=== PATIENT | female | born 1945 | race Caucasian/White ===

== ENCOUNTER 2018-05-26 17:39 | Inpatient (IN) ==
[2018-05-26] MEDS ORDERED: LOPRESSOR ONE ×2 (18:01→18:12)
[2018-05-26] MEDS ORDERED: NS 1,000 ML ONE (18:01)
[2018-05-26] MEDS ORDERED: ADENOCARD ONE (18:01)
[2018-05-26] MEDS ORDERED: ATIVAN ONE (18:01)
[2018-05-26] MEDS ORDERED: CARDIZEM ONE (18:01)
[2018-05-26] MEDS ORDERED: ADENOCARD IV ONE ×2 (18:19→18:20)
[2018-05-26] MEDS ORDERED: LOPRESSOR IV ONE (18:19)
[2018-05-26] MEDS ORDERED: NS 1,000 ML IV ONE (18:19)
[2018-05-26 18:33] LABS: BASO# 0.04 X1000 (0.0-0.2); BASO% 0.5 % (0.0-0.8); EOS% 1.2 % (0.0-10.0); HEMATOCRIT 42.7 % (37.0-47.0); HEMOGLOBIN 13.5 g/dL (12.0-16.0); LYMPH# 1.96 X1000 (1.2-3.4); LYMPH% 22.8 % (20.5-51.1); MCH 30.1 PG (27-31); MCHC 31.6 g/dL (33-37); MCV 95.3 FL (81-99); MONO# 0.95 X1000 (0.11-0.59); MONO% 11.1 % (1.7-9.3); MPV 11.3 FL (7.4-10.4); NEUT# 5.53 X1000 (1.4-6.5); NEUT% 64.4 % (42.2-75.2); PLT 239 X1000 (130-400); RBC 4.48 XMIL (4.2-5.4); RDW 13.1 % (11.5-14.5); WBC 8.58 X1000 (4.8-10.8)
--- NOTE | 2018-05-26 18:38 | Diag Imaging Result Doc PS360 ---
EXAM: CHEST-1 VIEW 05/26/2018 HISTORY: palpitations TECHNIQUE: AP portable at 1826 COMMENT: The heart size is the upper limits of normal. The pulmonary vascularity is increased. The lungs appear to be clear. There are no previous studies available for comparison. IMPRESSION: Borderline cardiomegaly. Electronically signed by Emmanuel Duarte 05/26/2018 6:35 PM
[2018-05-26 18:43] LABS: AGAP 15; BUN 16 mg/dL (8-22); CALCIUM 8.6 mg/dL (8.8-10.2); CHLORIDE 101 mmol/L (98-107); COSMO 279; CREATININE 0.7 mg/dL (0.5-0.9); ESTIMATED GFR > 60; GLUCOSE 141 mg/dL (70-104); POTASSIUM 3.9 mmol/L (3.5-5.1); SODIUM 138 mmol/L (136-145); TCO2 22 mmol/L (25-35)
--- NOTE | 2018-05-26 19:16 | PROVIDER DOCUMENTATION ---
HPI-Chest Pain - General Chief Complaint: Palpitations Stated Complaint: HEART PROBLEM Time Seen by Provider: 05/26/18 19:15 Source: patient Unable to obtain history due to:: urgency (limited due to urgency) - History of Present Illness-CP Nature of Presenting Problem: Presents to the with complaints of feeling like her heart was fluttering. She states this started acutely at home. She endorses some SOB associated with it and some left sided chest pain. She states that back in the 70s or 80s she had " a blockage" that did not require any stents. She no longer has a steam tender and has not seen one in years. She states this has never happened to her before and she has no history of arrythmia. Location: reports: other (left sided chest pain) Chest Pain Radiation: reports: no radiation Quality of Pain: reports: burning Severity in ED: moderate Onset/Duration: just prior to arrival Timing: still present Context/Activities at Onset: reports: none Modifying Factors: improves with: nothing Associated Symptoms: reports: shortness of breath Nitro Today/Relief: no nitro taken today Aspirin Treatment Today: no aspirin today Prior Chest Pain/Cardiac Workup: reports: other (see HPI) Similar Symptoms Previously?: No Review of Systems - Adult - REVIEW OF SYSTEMS - ADULT Constitutional: reports: no symptoms reported Eyes: reports: no symptoms reported Ears, Nose, Mouth & Throat: reports: no symptoms reported Cardiovascular: reports: chest pain, palpitations Respiratory: reports: shortness of breath Gastrointestinal: reports: no symptoms reported Genitourinary: reports: no symptoms reported Musculoskeletal: reports: no symptoms reported Integumentary: reports: no symptoms reported Neurological: reports: no symptoms reported Psychiatric: reports: no symptoms reported Endocrine: reports: no symptoms reported Hematologic/Lymphatic: reports: no symptoms reported Allergic/Immunologic: reports: no symptoms reported All Other Systems: Reviewed and Negative Past History - Adult - PAST MEDICAL HISTORY-ADULT Review of Records: reports: Old Records Reviewed Physical Exam-General - CONSTITUTIONAL General Appearance: alert, mild distress - EYES Eyes: PERRL/EOMI, pink conjunctivae - HEAD, EARS, NOSE, MOUTH & THROAT HENMT: normocephalic/atraumatic, moist mucous membranes - NECK Neck: full range of motion, supple - RESPIRATORY Respiratory: chest non-tender, lungs clear, normal breath sounds - CARDIOVASCULAR Cardiovascular: no edema, tachycardia - GASTROINTESTINAL (ABDOMEN) Abdominal Exam: normal bowel sounds, non tender, soft - MUSCULOSKELETAL Back Exam: normal inspection - SKIN Integumentary: normal color, warm/dry - NEUROLOGIC Neurologic: grossly normal, no motor/sensory deficits - PSYCHIATRIC Psych/Mental Status: oriented x 3 - HEART Score HEART Score: History: Moderately Suspicious HEART Score: ECG: Non-Specific Repolarization Disturbance/LBBB/PM HEART Score: Age: > or = 65 Years HEART Score: Risk Factors for Atherosclerotic Disease: 1 or 2 Risk Factors HEART Score: Troponin: < or = Normal Limit Total HEART Score:: 5 Progress - PLAN OF CARE/RESULTS Progress/Plan/Lab Results: Vital Signs - 8 hr 05/26/18 17:41 05/26/18 19:18 05/26/18 19:21 Temperature 98.0 F Pulse Rate 227 H 104 H 94 H Respiratory Rate 20 Blood Pressure 112/90 O2 Sat by Pulse Oximetry 93 L 05/26/18 19:30 05/26/18 19:33 Temperature Pulse Rate 97 H 97 H Respiratory Rate Blood Pressure 106/61 O2 Sat by Pulse Oximetry Laboratory Results - last 24 hr 05/26/18 05/26/18 05/26/18 17:59 17:59 17:59 WBC 8.58 RBC 4.48 Hgb 13.5 Hct 42.7 MCV 95.3 MCH 30.1 MCHC 31.6 L RDW Std Deviation 13.1 Plt Count 239 MPV 11.3 H Immature Gran % (Auto) 0.0 Neut % (Auto) 64.4 Lymph % (Auto) 22.8 [place] % (Auto) 11.1 H Eos % (Auto) 1.2 Baso % (Auto) 0.5 Immature Gran # (Auto) 0.00 Neut # (Auto) 5.53 Lymph # (Auto) 1.96 [place] # (Auto) 0.95 H Eos # (Auto) 0.10 Baso # (Auto) 0.04 Sodium 138 Potassium 3.9 Chloride 101 Carbon Dioxide 22 L Anion Gap 15 BUN 16 Creatinine 0.7 Estimated GFR/1.73 m2 > 60 BUN/Creatinine Ratio 23 Glucose 141 H Calculated Osmolality 279 Calcium 8.6 L Troponin T < 0.010 Bvj-S-Meeinmyyrwv Pept TSH Urine Source Urine Color Urine Turbidity Urine pH Ur Specific [place] Urine Protein Ur Glucose (Stick) Ur Ketones (Stick) Urine Blood Urine Nitrite Urine Bilirubin Urobilinogen Dipstick Urine Leukocytes Urine WBC (Auto) Urine RBC (Auto) U Epithel Cells (Auto) Urine Bacteria (Auto) 05/26/18 05/26/18 05/26/18 17:59 17:59 19:25 WBC RBC Hgb Hct MCV MCH MCHC RDW Std Deviation Plt Count MPV Immature Gran % (Auto) Neut % (Auto) Lymph % (Auto) [place] % (Auto) Eos % (Auto) Baso % (Auto) Immature Gran # (Auto) Neut # (Auto) Lymph # (Auto) [place] # (Auto) Eos # (Auto) Baso # (Auto) Sodium Potassium Chloride Carbon Dioxide Anion Gap BUN Creatinine Estimated GFR/1.73 m2 BUN/Creatinine Ratio Glucose Calculated Osmolality Calcium Troponin T Uuw-C-Bslfwmmzbfr Pept 457 H TSH 2.44 Urine Source CLEAN CATCH Urine Color YELLOW Urine Turbidity CLEAR Urine pH 6.0 Ur Specific [place] 1.000 Urine Protein NEGATIVE Ur Glucose (Stick) NEGATIVE Ur Ketones (Stick) 20 A Urine Blood SMALL A Urine Nitrite NEGATIVE Urine Bilirubin NEGATIVE Urobilinogen Dipstick NORMAL Urine Leukocytes MODERATE A Urine WBC (Auto) <10 Urine RBC (Auto) <10 U Epithel Cells (Auto) <10 Urine Bacteria (Auto) 2+ Orders Category Date Time Status CHEST-1 VIEW [RAD] Stat Exams 05/26/18 18:19 Completed BASIC METABOLIC PANEL [CHEM] Stat Lab 05/26/18 17:59 Completed CBC WITH DIFF [HEME] Stat Lab 05/26/18 17:59 Completed PRO B-NATRIURETIC PEPTIDE Stat Lab 05/26/18 17:59 Completed TROPONIN T Stat Lab 05/26/18 17:59 Completed TSH Stat Lab 05/26/18 17:59 Completed UA NIMS W/REFLEX CULT [URINALYSIS] Stat Lab 05/26/18 19:25 Completed URINE CULTURE [RM] Routine Lab 05/26/18 19:38 Received 0.9% Sodium Chloride Inj [Ns] 1,000 ml Med 05/26/18 18:01 Discontinued .ROUTE As directed 0.9% Sodium Chloride Inj [Ns] 1,000 ml Med 05/26/18 18:19 Discontinued IV 999 mls/hr Adenosine [Adenocard] Med 05/26/18 18:01 Discontinued 6 mg .ROUTE .STK-MED ONE Adenosine [Adenocard] Med 05/26/18 18:19 Discontinued 6 mg IV NOW ONE Adenosine [Adenocard] Med 05/26/18 18:20 Discontinued 6 mg IV NOW ONE Diltiazem [Cardizem] Med 05/26/18 18:01 Discontinued 25 mg .ROUTE .STK-MED ONE Lorazepam [Ativan] Med 05/26/18 18:01 Discontinued 2 mg .ROUTE .STK-MED ONE Metoprolol [Lopressor] Med 05/26/18 18:12 Discontinued 10 mg .ROUTE .STK-MED ONE Metoprolol [Lopressor] Med 05/26/18 18:01 Discontinued 5 mg .ROUTE .STK-MED ONE Metoprolol [Lopressor] Med 05/26/18 18:19 Discontinued 5 mg IV NOW ONE EKG [EKG] Stat Ther 05/26/18 18:21 Ordered EKG [EKG] Stat Ther 05/26/18 18:21 Ordered Patient with EKG showing SVT to 227. Patient assessed immediately upon arrival to room. Patient speaking and only in mild distress. BP stable in the low 100s and 90s. Given Adenosine 6mg x1 and no change in rhythm. Advised nurse to push Adenosine 12mg but she only pushed 6mg. Still no rhythm change. Patient still up and talking to me. Patient given Metoprolol 5mg IV push and HR trended down to the 90s. Repeat EKG obtained showing NSR with freq PVCs. Patient remained at this HR throughout ED stay. Spoke to hospitalist who accepted patient for admission. Stable for floor with telemetry. Result Diagrams: 05/26/18 17:59 05/26/18 17:59 - EKG 1 Time of EKG reading by physician:: 17:48 EKG Read and Signed by:: Cindy Gray EKG Interpretation (*Must complete 3 of following elements*): Abnormal Rate: 227 Rhythm: SVT 2 Time of EKG reading by physician:: 18:14 EKG Read and Signed by:: Cindy Gray EKG Interpretation (*Must complete 3 of following elements*): Abnormal Rate: 93 Rhythm: NSR QRS: PVC's (frequent) ST Wave: non-specific ST changes - XRAY 1 XRAY Study: Chest Impression: See EMR Report (EXAM: CHEST-1 VIEW 05/26/2018 HISTORY: palpitations TECHNIQUE: AP portable at 1826 COMMENT: The heart size is the upper limits of normal. The pulmonary vascularity is increased. The lungs appear to be clear. There are no previous studies available for comparison. IMPRESSION: Borderline cardiomegaly. Electronically signed by Emmanuel Duarte 05/26/2018 6:35 P) Departure - Departure Date of Disposition Decision: 05/26/18 Time of Disposition Decision: 19:33 DIAGNOSIS: SVT (supraventricular tachycardia), Chest pain Disposition: ADMITTED INPATIENT 09 Certified Medical Emergency: Emergent Condition: Stable Referrals and Follow-Ups: None,PCP [Primary Care Provider] - - Critical Care Note This patient required my direct & personal management of CC.: Yes Total Time (mins): 35 Critical Care Statement: This patient required my direct personal management to treat or rule out processes, the absence of which, could potentiallly result in sudden, clinically significant life or limb threatening deterioration. Attestation - Physician/ LEONA Attestation The physician spent face to face time with patient:: Yes Advanced Practice Provider documentation review:: Supervising physician onsite and consulted in the evaluation and care of this patient. The physician did have a face to face encounter with the patient.
[2018-05-26 19:30] LABS: URINE SOURCE CLEAN CATCH
[2018-05-26 19:33] LABS: BILIRUBIN URINE NEGATIVE (NEGATIVE); BLOOD URINE SMALL (NEGATIVE); COLOR YELLOW; GLUCOSE URINE NEGATIVE (NEGATIVE); KETONE URINE 20 mg/dL (NEGATIVE); LEUKOCYTES URINE MODERATE (NEGATIVE); NITRITE URINE NEGATIVE (NEGATIVE); PROTEIN URINE NEGATIVE (NEGATIVE); TURBIDITY URINE CLEAR (CLEAR); UROBILINOGEN URINE NORMAL (NORMAL)
[2018-05-26 19:34] LABS: UR EPITHELIAL CELLS <10 /HPF (<10); URINE BACTERIA 2+ /HPF; URINE RBC <10 /HPF (<10); URINE WBC <10 /HPF (<10)
[2018-05-26] MEDS ORDERED: CARDIZEM 125 MG in NS 100 ML IV SCH (21:30)
[2018-05-26] MEDS ORDERED: CARDIZEM IV ONE (21:30)
[2018-05-26] MEDS ORDERED: ZOFRAN IV PRN (21:30)
[2018-05-26] MEDS ORDERED: TYLENOL PO PRN (21:30)
[2018-05-26] MEDS ORDERED: ULTRAM PO PRN (21:39)
[2018-05-26] MEDS: LOVENOX SUBQ SCH (22:20)
[2018-05-26] MEDS: CARDIZEM 125 MG in NS 100 ML IV SCH (22:28)
[2018-05-26] MEDS: ROCEPHIN 1 GM in NS 50 ML IV SCH (23:17)
--- NOTE | 2018-05-27 05:41 | HISTORY AND PHYSICAL ---
PRIMARY CARE PROVIDER: Dr. David Saldana. DATE AND TIME: 05/26/2018 at 2030. CHIEF COMPLAINT: Palpitations. DATE AND TIME OF HISTORY AND PHYSICAL: May 26, 2018 at 2030. HISTORY OF PRESENT ILLNESS: Ms. Szymanski is a 72-year-old female who states this evening at about 5:00 p.m. that she had just walked from her car into a home for one of her friend's granddaughter's service. She had sat down on the pew and began to feel dizzy, lightheaded. She stated that she almost blacked out. She said she was having palpitations and could feel her heart racing away. During this time she did report that she did have some left- sided chest pressure that was nonradiating. She also did have some shortness of breath as well. They did present to the ER for further evaluation. Upon arrival to the ER, she did have an EKG that showed SVT at a rate of 227. They did provide two 6 mg doses of Adenosine though this did not have any effect on her heart rate. Ultimately she was given 5 mg of metoprolol and the patient did convert to a sinus rhythm with PVCs at a rate of 90. Her blood pressure did remain pretty good though it did drop to 90 systolic though she has received 1 L normal saline bolus and since that time her blood pressure has been in the 130s systolically. The patient reports that her associated symptoms of dizziness, chest pressure and shortness of breath have all subsided at this time. Chest x-ray did show some borderline cardiomegaly though a troponin was negative. Her BMP was slightly elevated at 457. Also patient has reported that she has not felt well all week. She did have one episode of vomiting on Sunday. She did have a few episodes of diarrhea this morning though she reported that she took Imodium and has not had any further episodes. She denies any fever or chills though does report she has body aches fairly often because she had arthritis. Though she denies any abdominal pain, she has reported some dysuria and urinary frequency and does have a history of having frequent urinary tract infections. Urinalysis did show a small amount of blood, moderate leukocytes and 2+ bacteria. At this time the patient will placed on inpatient admission to [facility] for further treatment and evaluation. REVIEW OF SYSTEMS: A 14-point review of systems was conducted with the patient and all were negative except for pertinent positives mentioned above in the HPI. PAST MEDICAL HISTORY: 1. Hypertension. 2. Hyperlipidemia. 3. History of coronary artery disease with a reported myocardial infarction in the 1980s though the patient denies having to have any intervention for this. She denies any stents or open heart surgery. 4. Hypothyroidism. 5. Seasonal allergies. 6. History of pancreatitis. PAST SURGICAL HISTORY: 1. Cholecystectomy. 2. Hysterectomy. 3. Abdominal hernia repair. 4. Bilateral cataract artery. 5. Surgical repair of a detached retina in her right eye. 6. Breast reduction. 7. Gastric bypass. SOCIAL HISTORY: The patient did state that she occasionally smoked when she was in college though she has not smoked since. There is no known alcohol or illicit drug use. She is . Her was present at bedside. She does live at home. FAMILY HISTORY: Positive for her mother having a history of arthritis and stroke. Her father at age 62 secondary to a myocardial infarction. She does have one half brother though he secondary to a plane crash. ALLERGIES: The patient reports no known allergies. HOME MEDICATIONS: 1. Zyrtec 10 mg one p.o. daily. 2. Citalopram 20 mg p.o. daily. 3. Premarin 0.3 mg tablet though the patient states that she takes this only as needed. 4. Levothyroxine 100 mcg p.o. daily. 5. Lisinopril-HCTZ 20/12.5 mg tablet one p.o. daily. 6. Metoprolol 25 mg tablet. She takes a half tablet p.o. b.i.d. 7. Requip 0.5 mg p.o. nightly. 8. Simvastatin 20 mg p.o. daily. 9. Timolol ophthalmic gel. The patient uses one drop in her right eye daily. 10.Tramadol one tablet p.o. b.i.d. p.r.n. for pain. 11.Isosorbide mononitrate extended release 30 mg p.o. q.24.h. DIAGNOSTIC DATA: Laboratory results: White blood cell count is 8.58. Hemoglobin 13.5. Hematocrit 42.7. Platelet count is 239. Sodium 138. Potassium 2.9. Chloride is 101. Serum bicarbonate is 22. BUN 16. Creatinine 0.7. GFR is greater than 60. Glucose 141. Calcium 8.6. Troponin is less than 0.01. ProBNP 457. TSH was 2.44. Urinalysis was obtained via clean catch. It was positive for ketones, blood, moderate leukocytes and 2+ bacteria. Chest x-ray showed no acute abnormalities as per Radiology. EKG initial did show SVT at a rate of 227. After administering Adenosine times 2 doses and metoprolol, she did convert to a sinus rhythm with PVCs. This was at a rate of 93. PHYSICAL EXAMINATION: VITAL SIGNS: Temperature 97.9, heart rate 98, respirations 18, blood pressure 131/66, oxygen saturation was 98% on room air. GENERAL: Ms. Szymanski is a pleasant 72-year-old, female. She was resting in the ER stretcher. She was in no acute distress. She was awake, alert and able to answer questions appropriately. HEENT: Head is atraumatic, normocephalic. Pupils are equal, round, reactive to light, were 3 mm bilaterally and brisk. Oral mucosa was dry. Oropharynx was clear. NECK: Supple. Trachea midline. No JVD noted upon examination. No carotid bruits noted upon auscultation bilaterally. CARDIOVASCULAR: Patient has normal S1, S2 present. No murmurs, gallops or rubs appreciated, with a regular rate and rhythm. PULMONARY: Patient has symmetrical chest expansion bilaterally. Lung sounds are clear to auscultation in bilateral full otero. ABDOMEN: Soft, nontender. Does not appear to distended. The patient have a protuberant abdomen noted. Bowel sounds are present in all 4 quadrants, were normoactive. EXTREMITIES: No cyanosis, clubbing or edema noted. Pulse, motor and sensory were intact in all extremities. Radial pulses and pedal pulses were 2+ bilaterally. INTEGUMENTARY: The patient's skin is pink, warm and dry. NEUROLOGICAL: The patient is alert and oriented to person, time and situation. There did not appear to be any focal neurological deficits noted. ASSESSMENT AND PLAN: 1. Supraventricular tachycardia. The patient did initially arrive in this rhythm at a rate of 227. She was given two 6 mg doses of Adenosine with no effect and then was ultimately given 5 mg of Metoprolol for which she did convert to a sinus rhythm with PVCs at a rate of 90. We have placed the patient on a Cardizem drip at this time. Her blood pressure has remained adequate. We will continue to monitor closely. She will be placed in [facility] for close monitoring. We will do a series of troponins. We will performed an echocardiogram in the morning. She will be on a heart healthy diet. We have placed a consult with Dr. Santana in Cardiology and will await their evaluation and further recommendations for management. 2. History of coronary artery disease. 3. Hypertension. The patient does normally take lisinopril-HCTZ. We have held this while she is on the Cardizem drip. 4. Hyperlipidemia. We have continued her simvastatin. 5. Hypothyroidism. Will continue her levothyroxine. 6. Symptomatic Urinary Tract Infection. We have place her with antibiotic coverage of Rocephin IV 1 gram every 24 hours. Urine culture results are pending at this time. 6. DVT prophylaxis. The patient is receiving anticoagulation at this time with Lovenox 1 mg/kg subcutaneously q.12.h. She has been placed on [facility] with telemetry. Will do vital signs q.4.h. Will do strict intake and output. She will be on a heart healthy diet. Will repeat CBC, BMP and cardiacs in the morning as well as a magnesium. Further orders and recommendations pending hospital course, diagnostic studies and physician evaluation. Dictated by MATHEW Adamson for Scar Carson MD Addendum: Patient seen and examined by myself. Agree with MATHEW note. It reflects my assessment and plan. Patient is being admitted to hospital for SVT. Will place her on telemetry and start Cardizem drip. Will order an echo and consult Cardiology. Will monitor this patient closely. cc: Scar Carson MD [facility]
[2018-05-27 05:51] LABS: BASO# 0.04 X1000 (0.0-0.2); BASO% 0.6 % (0.0-0.8); EOS# 0.05 X1000 (0.0-0.7); EOS% 0.8 % (0.0-10.0); HEMATOCRIT 39.7 % (37.0-47.0); HEMOGLOBIN 12.4 g/dL (12.0-16.0); IMM GRAN# 0.02 X1000 (0.0-0.04); IMM GRAN% 0.3 % (0.0-0.5); LYMPH# 1.46 X1000 (1.2-3.4); LYMPH% 23.4 % (20.5-51.1); MCH 29.9 PG (27-31); MCHC 31.2 g/dL (33-37); MCV 95.7 FL (81-99); MONO% 12.8 % (1.7-9.3); MPV 11.1 FL (7.4-10.4); NEUT# 3.87 X1000 (1.4-6.5); NEUT% 62.1 % (42.2-75.2); PLT 215 X1000 (130-400); RBC 4.15 XMIL (4.2-5.4); RDW 13.1 % (11.5-14.5); WBC 6.24 X1000 (4.8-10.8)
[2018-05-27] MEDS: SYNTHROID PO SCH (06:12)
[2018-05-27 06:19] LABS: AGAP 11; BUN 9 mg/dL (8-22); CALCIUM 8.7 mg/dL (8.8-10.2); CHLORIDE 108 mmol/L (98-107); COSMO 284; CREATININE 0.5 mg/dL (0.5-0.9); ESTIMATED GFR > 60; GLUCOSE 103 mg/dL (70-104); POTASSIUM 3.4 mmol/L (3.5-5.1); SODIUM 143 mmol/L (136-145); TCO2 24 mmol/L (25-35)
[2018-05-27] MEDS: IMDUR PO SCH ×2 (08:34→20:53)
[2018-05-27] MEDS: TIMOPTIC 0.25% OPH SOLUTION OPH SCH (08:34)
[2018-05-27] MEDS: ZYRTEC PO SCH (08:34)
[2018-05-27] MEDS: CELEXA PO SCH (08:34)
[2018-05-27] MEDS: LOVENOX SUBQ SCH ×2 (08:40→20:54)
[2018-05-27] MEDS ORDERED: ZOCOR PO SCH (09:00)
[2018-05-27] MEDS ORDERED: PRINZIDE 20/12.5MG PO SCH (09:00)
--- NOTE | 2018-05-27 09:05 | EKG Report ---
Test Performed on : 05/26/2018 6:14:14 PM Test Reason : palpitations Blood Pressure : / mmHG Vent. Rate : 093 BPM Atrial Rate : 093 BPM P-R Int : 170 ms QRS Dur : 092 ms QT Int : 376 ms P-R-T Axes : 053 -07 035 degrees QTc Int : 467 ms Sinus rhythm. with frequent premature ventricular complexes. Inferior infarct , age undetermined Possible Anterior infarct (cited on or before 07-DEC-2008) Abnormal ECG When compared with ECG of 24-MAY-2009 15:18, ST now depressed in Lateral leads Nonspecific T wave abnormality no longer evident in Lateral leads Unconfirmed Result
--- NOTE | 2018-05-27 11:52 | EKG Report ---
Test Performed on : 05/27/2018 11:43:43 AM Test Reason : svt Blood Pressure : / mmHG Vent. Rate : 072 BPM Atrial Rate : 072 BPM P-R Int : 144 ms QRS Dur : 092 ms QT Int : 436 ms P-R-T Axes : 000 -15 -01 degrees QTc Int : 477 ms Sinus rhythm. with occasional premature ventricular complexes. Inferior infarct (cited on or before 18-JAN-2009) Abnormal ECG When compared with ECG of 26-MAY-2018 18:14, (Unconfirmed) Inverted T waves have replaced nonspecific T wave abnormality in Inferior leads Unconfirmed Result
--- NOTE | 2018-05-27 13:24 | CONSULTATION ---
DATE OF CONSULTATION: 05/27/2018 IMPRESSION: 1. Episode of wide complex tachycardia with associated presyncope, palpitations, and mild chest pressure. Patient reverted back to sinus rhythm following intravenous adenosine 6 mg x2 doses, intravenous metoprolol, and intravenous diltiazem. 2. Atherosclerotic coronary disease. Patient has history of previous posterior basal myocardial infarction at some point in the past. Coronary angiography, December 2003, demonstrated a codominant coronary system with right coronary artery smaller in size with midvessel occlusion and left to right collaterals well-established. Remaining coronary arteries were normal and LV EF was 40% to 45%. 3. Hypertension. 4. Obesity. Patient has history of previous gastric bypass surgery. RECOMMENDATIONS: 1. Telemetry observation. 2. Echocardiography. 3. Patient's clinical presentation and electrocardiogram were reviewed with Dr. Oscar Fuentes of Arrhythmia/Electrophysiology in [place]. Her wide complex tachycardia appears to be most likely ventricular tachycardia. Initiation of amiodarone suggested pending further management. 4. Given clinical presentation with ventricular tachycardia and presyncope in setting of known coronary disease, further evaluation with cardiac catheterization/coronary angiography recommended. The rationale for this approach along with potential hazards were reviewed the patient, and she wished to proceed. HISTORY: This 72-year-old white female with past history of chronic right coronary artery occlusion as outlined above, previous basal inferoposterior infarct, hypertension, and obesity was admitted through the emergency room yesterday evening with episode of wide complex tachycardia. She was going to a yesterday afternoon. She and her had walked perhaps about a block. When she was about to enter the building where the was to be held, she started feeling sudden onset of lightheadedness to the point of almost passing out coupled with tachycardic palpitations and mild chest pressure. Symptoms persisted, although her lightheadedness improved as her palpitations continued. Her drove her to the emergency room from [facility]. ECG revealed wide complex tachycardia. In the emergency room, she was given intravenous adenosine 6 mg x2 doses, followed by intravenous metoprolol, followed by intravenous diltiazem. She reverted back to sinus rhythm, and her symptoms resolved. She indicates that she has infrequent episodes of brief palpitations with transient lightheadedness in the past, but never really thought much of it. She is fairly active without any exertional angina. She has history of previous basal inferoposterior infarct, the date of which is not really clear, as she has no prominent history of angina in the past. Her cardiac catheterization study was done in 2003 as part of a preoperative evaluation prior to gastric bypass procedure, given her abnormal ECG and evidence of previous infarction. PAST MEDICAL HISTORY: 1. Atherosclerotic coronary disease. 2. Hypertension. 3. Hyperlipidemia. 4. Hypothyroidism. 5. Obesity. 6. History of pancreatitis. PAST SURGICAL HISTORY: Includes cholecystectomy, hysterectomy, bilateral cataract surgery, abdominal hernia repair, unspecified right eye surgery for detached retina, breast reduction surgery, and gastric bypass procedure. ALLERGIES: She has no known drug allergies. MEDICATIONS PRIOR TO ADMISSION: As listed. SOCIAL HISTORY: She is . She lives at home with her . She does not smoke or use alcohol. FAMILY HISTORY: Positive for coronary disease. REVIEW OF SYSTEMS: Pulmonary: Negative. Gastrointestinal: Negative. Constitutional: Negative. Fourteen total systems reviewed. PHYSICAL EXAMINATION: General: This is an obese older white female in no distress. Vital signs: Blood pressure 137/73, heart rate 61. Weight: 219 pounds. HEENT: Extraocular movements appear to be intact. Mucous membranes are moist. Neck: Supple without jugular venous distention. There are no carotid bruits. Chest: Clear to auscultation. Cardiac: Exam reveals a regular rate and rhythm without appreciable murmur or gallop. Abdomen: Soft. Bowel sounds are normal. Extremities: Without edema. Neurologic: Exam reveals her to be alert and fully oriented. Speech is fluent. She moves all 4 extremities equally well. Skin: Warm and dry. Psychiatric: Exam reveals her mood to be appropriate. DIAGNOSTIC STUDIES: A 12-lead EKG demonstrates sinus rhythm and inferior infarct of undetermined age. Occasional PVCs demonstrated. Laboratory data includes a sodium 143, potassium 3.4, chloride 108, carbon dioxide 24, BUN 9, creatinine 0.5, glucose 103. Magnesium 2.0. Troponin T initially 0.167, follow-up troponin T 0.151 and 0.099. Ntv-B-qcuzalddleb peptide level 457. TSH 2.16. White blood cell count 6.24, hematocrit 39.7, hemoglobin 12.5, platelet count 215,000. cc: Hudson Luna MD
[2018-05-27] MEDS: CORDARONE PO SCH ×2 (13:45→17:41)
[2018-05-27] MEDS: LOPRESSOR PO SCH ×2 (13:46→20:53)
--- NOTE | 2018-05-27 18:27 | PROGRESS NOTE ---
DATE: 05/27/2018 SUBJECTIVE: This morning, Ms. Szymanski refers to be doing fairly okay. She says she is feeling stronger. Has not had any more palpitations and no chest discomfort. OBJECTIVE: Vital signs: Blood pressure is 107/54, pulse is 59, respirations 16, temperature 98.2 degrees. General: Ms. Szymanski is a 72-year-old obese female. BMI 37.6. She is in bed, not in any cardiopulmonary distress. Mucosa is pink and moist. Anicteric. Acyanotic. Neck: Supple. Chest: Clear to auscultation. No crepitations. No rhonchi. Cardiovascular: Regular rate and rhythm. There is no murmurs, no rubs, no gallops. Abdomen: Soft, distended but nontender. Extremities: No pedal edema. Neurologic: The patient is awake, alert, oriented. There is no focal neurological deficit. LABORATORY DATA: WBC is 6.24, hemoglobin is 12.4, platelet count of 215,000. Chemistry is also reviewed. Troponin went up to 0.167, but is trending down. ASSESSMENT: 1. Near syncopal episode secondary to cardiac arrhythmia. 2. Wide complex tachycardia, likely due to ventricular tachycardia. The patient has been evaluated by Cardiology. 3. History of coronary artery disease. 4. Hypertension. 5. Dyslipidemia. 6. Hypothyroidism. 7. Non-elevated troponin likely due to non-ST elevation myocardial infarction. 8. Gram negative murphy urinary tract infection. The patient is on ceftriaxone. PLAN: In general, I feel Ms. Szymanski is doing fairly okay. She just had an echocardiogram. I think there is a plan for a left heart catheterization hopefully tomorrow. Cardiology is on board and will follow up with any further recommendations. cc: Michael Velasquez MD MTDD
[2018-05-27] MEDS: REQUIP PO SCH (20:53)
[2018-05-27] MEDS: CARDIZEM 125 MG in NS 100 ML IV SCH (20:57)
[2018-05-27] MEDS: ROCEPHIN 1 GM in NS 50 ML IV SCH (22:39)
[2018-05-28 05:33] LABS: HEMATOCRIT 38.2 % (37.0-47.0); HEMOGLOBIN 12.1 g/dL (12.0-16.0); MCH 30.5 PG (27-31); MCHC 31.7 g/dL (33-37); MCV 96.2 FL (81-99); MPV 10.9 FL (7.4-10.4); RBC 3.97 XMIL (4.2-5.4); RDW 13.5 % (11.5-14.5); WBC 6.84 X1000 (4.8-10.8)
[2018-05-28 05:42] LABS: INR 1.04; PROTIME 14.4 Seconds (11.0-16.0)
[2018-05-28 06:16] LABS: AGAP 11; BUN 10 mg/dL (8-22); CALCIUM 8.7 mg/dL (8.8-10.2); CHLORIDE 112 mmol/L (98-107); COSMO 292; CREATININE 0.6 mg/dL (0.5-0.9); ESTIMATED GFR > 60; GLUCOSE 100 mg/dL (70-104); MAGNESIUM 1.9 mg/dL (1.5-2.7); SODIUM 147 mmol/L (136-145); TCO2 24 mmol/L (25-35)
[2018-05-28] MEDS: SYNTHROID PO SCH (06:24)
--- NOTE | 2018-05-28 09:10 | PROGRESS NOTE ---
DATE: 05/28/2018 SUBJECTIVE: This is a patient of Dr. David Saldana; a 72-year-old who came in complaining of palpitations. She had just been walking from the car into a home for 1 of her friend's granddaughter's service and sat down, felt real dizzy and lightheaded, and almost blacked out, having palpitations. PAST MEDICAL HISTORY: 1. Hypertension. 2. Hyperlipidemia. 3. History of coronary artery disease with reported myocardial infarction in the . This patient has not had any intervention for this I do not believe. Denies any stents or open heart surgery. 4. Hypothyroidism. 5. Seasonal allergies. 6. History of pancreatitis. PAST SURGICAL HISTORY: 1. Cholecystectomy. 2. Hysterectomy. 3. Abdominal hernia repair. 4. Bilateral cataract repair. 5. Surgical repair of detached retina in the right eye. 6. Breast reduction. 7. Gastric bypass. OBJECTIVE: Vital Signs: On exam today, she appears to be in a regular rhythm. At this point, temperature 97.7 degrees, pulse 68, respirations 18, blood pressure 137/65. Eyes: Pupils are equal. Neck: No distended neck veins. General: Awake and alert, oriented x3. Lungs: Clear anterolateral. Cardiovascular exam: Regular rhythm and rate. PMI nondisplaced. Abdomen: Soft. Extremities: No pedal edema. Carotid and radial pulses 2+ and symmetrical. : Urine output 1500 mL. ASSESSMENT AND PLAN: 1. She had an episode of wide complex tachycardia associated with presyncope, palpitations, mild chest pressure. She is back in sinus rhythm following intravenous adenosine 6 mg times 2. Intravenous metoprolol and intravenous diltiazem. 2. History of atherosclerotic coronary artery disease. History of previous posterior basilar myocardial infarction. At some point, she had an infarction. Coronary angiography December 2003 demonstrated a codominant coronary system with right coronary artery similar in size with midvessel occlusion and left to right collaterals well-established. Remaining coronary arteries were normal. Ejection fraction at that time 40 to 45 percent. I think the plan is to do a heart catheterization on her today. She has a history of chronic right coronary occlusion and previous basilar inferoposterior infarct. She has a history of hypertension, history of hyperlipidemia, history of hypothyroidism. Review of her orders: She is on Requip 0.5 mg at bedtime, Tylenol q. 6 hours p.r.n. They started her on Cordarone 400 mg p.o. t.i.d., Celexa 20 mg a day, isosorbide mononitrate 30 mg p.o. b.i.d., Synthroid 100 mcg daily, Lopressor 25 mg b.i.d. She is getting Ultram 50 mg q. 8 hours p.r.n. pain and Zocor of 20 mg daily. As far as a wide complex tachycardia, it is likely due to ventricular tachycardia, so a heart catheterization planned today. cc: Luke Galvan MD
[2018-05-28] MEDS: ZYRTEC PO SCH (09:15)
[2018-05-28] MEDS: LOPRESSOR PO SCH ×2 (09:15→20:25)
[2018-05-28] MEDS: CELEXA PO SCH (09:15)
[2018-05-28] MEDS: TIMOPTIC 0.25% OPH SOLUTION OPH SCH (09:17)
[2018-05-28] MEDS: IMDUR PO SCH (09:21)
[2018-05-28] MEDS: CORDARONE PO SCH ×3 (09:21→20:25)
[2018-05-28] MEDS ORDERED: HEPARIN 1000 UNITS/NS 2,000 UNIT/1,000 ML IV.SOLN ONE (09:52)
[2018-05-28] MEDS ORDERED: CLAVE TWINSITE 32 IN 11959 ONE (10:08)
[2018-05-28] MEDS ORDERED: DILAUDID ONE (10:08)
[2018-05-28] MEDS ORDERED: ANESTHESIA PB SET 88 IN 5742 ONE (10:08)
[2018-05-28] MEDS ORDERED: VERSED ONE (10:08)
[2018-05-28] MEDS ORDERED: NS 1,000 ML ONE (10:09)
--- NOTE | 2018-05-28 11:15 | CARDIAC CATH REPORT ---
PROCEDURE NAME: - INDICATION: Ventricular tachycardia, history of coronary disease. PROCEDURE IN DETAIL: Ms. Szymanski was brought to the catheterization laboratory in fasting state. Informed consent was obtained. She was prepped in the usual fashion. She was anesthetized over the right radial artery after Luke's test proved adequate. A 5-[place] sheath was placed via true Seldinger technique. The right radial cocktail was administered, catheters were introduced, and hemodynamic measurements made of the ascending thoracic aorta. Coronary angiography was performed in multiple views using JL3.5 and JR4 diagnostic catheters. A left heart catheterization was performed using the JR4, as was the left ventriculogram. At the conclusion of the procedure, all sheaths and catheters were removed. TR band was left inflated at 8 mL of air with good capillary refill and good hemostasis. COMPLICATIONS: No apparent complications. CONTRAST: 75 mL of IV contrast. BLOOD LOSS: 5-10 mL. FINDINGS: 1. The left main has an ostial 20% lesion that originates from the left coronary cusp. 2. Left anterior descending artery originates from the left main. There is mild to moderate proximal disease with a mid vessel 50% to 60% lesion at the takeoff of a large first diagonal. Minor luminal irregularities are noted in the proximal vessel. The first diagonal is a moderate-size vessel with mild diffuse disease. 3. Circumflex originates from the left main. There is proximal mild diffuse disease as well as mid vessel and distal vessel mild diffuse disease. There is a large very high obtuse marginal with a proximal 80% lesion. There is an OM2 that is moderate size with moderate diffuse disease. 4. The right coronary artery originates from the right coronary cusp. The right coronary is occluded proximally with very little flow into a heavily diseased mid vessel and predominantly a very small RV branch. There is heavy left to right collateralization filling the more distal aspects of the right coronary. 5. The left ventriculogram demonstrates a reduced ejection fraction around 45% with some anterior wall hypokinesis. 6. Aortic blood pressure 127/45 with a mean of 84. Left ventricle pressure is 117/5 with an LVEDP of 15. ASSESSMENT: Ms. Szymanski is a 72-year-old female who came in with a wide complex tachycardia associated with some presyncope and mild chest discomfort. PLAN: We will discuss the case with Dr. Luna. She does have a significant lesion in a high OM1 that may need intervention, considering her current issues. cc: Gerald Dumont MD
--- NOTE | 2018-05-28 13:40 | ECHO REPORT ---
ORDER DATE: 05/26/2018 INDICATION: Supraventricular tachycardia. FINDINGS: 1. Right atrium appears to be normal in size at 3.9 cm. 2. Mild tricuspid regurgitation. RV systolic pressure of 41 mmHg. 3. Normal RV size and systolic function. 4. Trace pulmonic insufficiency. 5. Severe left atrial enlargement with a dimension of 5 cm and a volume index of 61. 6. No mitral prolapse. Mild mitral regurgitation. 7. Normal LV size, end-diastolic dimension of 5.6 cm. Moderate left ventricular hypertrophy with a posterior and interventricular septal wall thickness 1.4 cm each. Normal LV systolic function. The estimated EF is 55%. On some apical views, there is a suggestion of mild hypokinesis of the distal anterior septum. 8. Aortic valve opens well. It is trileaflet. No evidence of stenosis or insufficiency. 9. Aorta appears normal in visualized segments. 10. No pericardial effusion seen. cc: MD Scar Neri MD
[2018-05-28] MEDS ORDERED: ASPIRIN PO SCH (15:15)
[2018-05-28] MEDS ORDERED: PLAVIX PO SCH (15:30)
--- NOTE | 2018-05-28 15:35 | PROGRESS NOTE ---
DATE: 05/28/2018 SUBJECTIVE: Patient had coronary angiography today which demonstrated chronic RCA occlusion proximally and severe stenosis in large obtuse marginal serving the high lateral wall. She continues without chest discomfort or dyspnea. Remains in sinus rhythm. OBJECTIVE: Vital Signs: Blood pressure 117/62, heart rate 62 and regular with ECG monitor showing sinus rhythm. Oxygen saturation 98%. Chest is clear to auscultation. Cardiac exam: A regular rate and rhythm without appreciable murmur or gallop. Extremities are without edema. LABORATORY DATA: Includes a white blood cell count of 6.84, hematocrit 38.2, hemoglobin 12.2, platelet count 235,000. Sodium 147, potassium 4.0, chloride 112, carbon dioxide 24, BUN 10, creatinine 0.6, glucose 100. IMPRESSION: 1. Recent episode of sustained ventricular tachycardia. 2. Atherosclerotic coronary disease with previous posterior basal myocardial infarction and chronic RCA occlusion as well as new finding of severe stenosis in large obtuse marginal. 3. Hypertension. 4. Obesity. RECOMMENDATIONS: 1. Continue aspirin, metoprolol, and Imdur. 2. Continue amiodarone for the present to suppress ventricular tachycardia. 3. Favor transfer to [facility] for further care with possible intervention on the obtuse marginal after you for interventional cardiology. As per previous discussion with Oscar Fuentes of arrhythmia/electrophysiology service in [place], she very well may benefit from implantable defibrillator. This was discussed with the patient and she agreed to transfer. cc: Hudson Luna MD
[2018-05-28 20:09] VITALS: BP 129/62
[2018-05-28] MEDS: REQUIP PO SCH (20:25)
[2018-05-28] MEDS: ROCEPHIN 1 GM in NS 50 ML IV SCH (21:08)
[2018-05-29] MEDS ORDERED: IMDUR PO SCH (09:00)
--- NOTE | 2018-07-16 23:25 | DISCHARGE SUMMARY ---
ADMISSION DATE: 05/26/2018 DISCHARGE DATE: 05/28/2018 PRIMARY CARE PHYSICIAN: David Saldana MD. BRIEF HISTORY: The patient is a 72-year-old female who presented with palpitations, states that in the evening about 5 p.m. she walked around her car into a home for one of her friend's granddaughter's service. She sat down on the pew and began to feel dizzy and lightheaded. She states she almost blacked out. She said she was having palpitations, could feel her heart racing away. During this time she did report she did have some left- sided chest pressure that was nonradiating. She also did have some shortness of breath as well. They did present to the emergency room for further evaluation. Upon arrival in the ER she had an EKG, it showed supraventricular tachycardia at a rate of 227. They did provide two 6-mg doses of adenosine, although she did not have any effect in her heart rate. Ultimately she was given 5 mg of metoprolol, the patient did convert to sinus rhythm with PVCs at a rate of 90. Blood pressure did remain pretty good though did drop in the 90s for a while, 90s systolic. She received 1 L normal saline bolus, since that time blood pressure has remained around 130s systolic. The patient reports that she had associated symptoms of dizziness, chest pressure and shortness of breath, which all have subsided. Chest x-ray did show some borderline cardiomegaly, though the troponin was negative. Her BNP was slightly elevated at 4.457. She also reported that she had not felt well all week. She did have several episodes of vomiting on Sunday, she did have a few episodes of diarrhea in the morning. She reported that she took Imodium and has not had any further episodes. She denies any fever or chills. She reports that she had some body aches very often because she had arthritis. Denied any abdominal pain. She had reported some dysuria and urinary frequency and a history of frequent urinary tract infections. Urinalysis did show a small amount of blood, moderate leukocytosis and 2+ bacteria. So the patient was admitted with chest pain, supraventricular tachycardia, history of coronary artery disease. She was evaluated per Dr. Couch. Episode of wide complex tachycardia associated presyncope, palpitations, and mild chest pressure. The patient reverted back to rhythm following intravenous adenosine 6 mg x2 and a doses of metoprolol and intravenous diltiazem. She has atherosclerotic coronary artery disease, history of previous posterior basal myocardial infarction at some point in the past. Coronary angiography in December 2003 demonstrated codominant coronary system with right coronary artery smaller in size, with mid vessel occlusion in the left to right collaterals with well- established, remaining coronary arteries were normal. LVEF was 40%-45%. She underwent heart catheterization per Dr. Dumont, wide complex tachycardia associated with presyncope. She has a significant high lesion in the oblique marginal and may need intervention, and she was transferred to [facility] for further evaluation with a vise hand, transferred on 05/29/2018. cc: Luke Galvan MD MTDElham
== END 2018-05-28 23:18 | disposition short-term general hospital (02) | DRG 287 ==
LOC: ED 17:39 → 3S 21:16 → SUATTDRO 21:16 → 3S 05-28 14:19
PROVIDERS: ATTEND Emergency Medicine
CPT/HCPCS: 71010; 71045; 80048; 81001; 83735; 83880; 84443; 84484; 85025; 85027; 85610; 87077; 87088; 87186; 93005; 93010; 93306; 93458; 96361; 96374; 96375; 97162; 99285; 99291; A9270; J0150; J0153; J0696; J1170; J1644; J1650; J2060; J2250; J7030; Q9967

== ENCOUNTER 2018-06-05 09:27 | Observation (INO) ==
[2018-06-05] MEDS ORDERED: PROTONIX IV ONE (09:51)
[2018-06-05] MEDS ORDERED: SODIUM CHLORIDE 0.9% INJ ONE (09:51)
--- NOTE | 2018-06-05 09:55 | PROVIDER DOCUMENTATION ---
HPI-Abdominal Pain/GI Problem - General Chief Complaint: Vomiting Blood Stated Complaint: VOMITING BLOOD Time Seen by Provider: 06/05/18 09:39 Source: patient, old records Allergies/Adverse Reactions: Patient Allergies Allergy/AdvReac Type Severity Reaction Status Date / Time No Known Allergies Allergy Verified 06/05/18 10:45 Home Medications: Home Medication List Medication Instructions Recorded Confirmed Last Taken Type Cetirizine HCl [Zyrtec] 1 tab PO DAILY 05/26/18 06/05/18 06/05/18 08:00 History Citalopram Hydrobromide 1 tab PO DAILY 05/26/18 06/05/18 06/05/18 08:00 History [Citalopram HBr] Estrogens, Conjugated [Premarin] 1 tab PO DIRECTED 05/26/18 06/05/18 06/05/18 08:00 History Levothyroxine Sodium 1 tab PO DAILY 05/26/18 06/05/18 06/05/18 08:00 History Lisinopril/Hydrochlorothiazide 1 tab PO DAILY 05/26/18 06/05/18 06/05/18 08:00 History [Lisinopril-Hctz 20-12.5 mg Tab] Ropinirole HCl [Requip] 0.5 tab PO QHS 05/26/18 06/05/18 06/04/18 20:00 History Simvastatin 1 tab PO DAILY 05/26/18 06/05/18 06/04/18 20:00 History Timolol Maleate 1 dose OPH DAILY 05/26/18 06/05/18 06/05/18 08:00 History Tramadol HCl 1 tab PO TID PRN 05/26/18 06/05/18 06/05/18 08:00 History Aspirin [Aspirin EC] 81 mg PO DAILY 06/05/18 06/05/18 06/05/18 08:00 History Estrogens, Conjugated [Premarin] 0.3 mg PO DAILY 06/05/18 06/05/18 06/05/18 08:00 History Prasugrel HCl 10 mg PO DAILY 06/05/18 06/05/18 06/05/18 08:00 History Sotalol HCl [Sotalol] 80 mg PO DAILY 06/05/18 06/05/18 06/05/18 08:00 History - History of Present Illness-ABD Nature of Presenting Problems: pt recently d/c from after placement of AICD and CCath w/ 1 stent. Rx @ d/c incl ASA and Effient. pt has hx (2002) of gastric bypass. awoke this a.m. w/ nausea, then emesis X 1 w/ "marroon" blood, est would have filled coffee cup. had normal BM this a.m. w/o BRBPR or melena. no prior hx GIH. denies AP, CP, dysnea, pre-syncope. Review of Systems - Adult - REVIEW OF SYSTEMS - ADULT Constitutional: reports: no symptoms reported Eyes: reports: no symptoms reported Ears, Nose, Mouth & Throat: reports: no symptoms reported Cardiovascular: reports: no symptoms reported Respiratory: reports: no symptoms reported Gastrointestinal: reports: see HPI Genitourinary: reports: no symptoms reported Musculoskeletal: reports: no symptoms reported Integumentary: reports: no symptoms reported Neurological: reports: no symptoms reported Psychiatric: reports: no symptoms reported Endocrine: reports: no symptoms reported Hematologic/Lymphatic: reports: no symptoms reported Allergic/Immunologic: reports: no symptoms reported All Other Systems: Reviewed and Negative Past History - Adult - PAST MEDICAL HISTORY-ADULT Review of Records: reports: Old Records Reviewed Physical Exam-General - PHYSICAL EXAM-ADULT Initial Vital Signs Reviewed: Yes - CONSTITUTIONAL General Appearance: appears well, alert, no apparent distress - EYES Eyes: PERRL/EOMI, pink conjunctivae - HEAD, EARS, NOSE, MOUTH & THROAT HENMT: normocephalic/atraumatic, moist mucous membranes - NECK Neck: full range of motion, supple - RESPIRATORY Respiratory: lungs clear, normal breath sounds - CARDIOVASCULAR Cardiovascular: normal peripheral pulses, regular rate, rhythm - GASTROINTESTINAL (ABDOMEN) Abdominal Exam: normal bowel sounds, non tender, soft - LYMPHATIC Lymphatic: no adenopathy - MUSCULOSKELETAL Back Exam: normal inspection, no CVA tenderness Extremity: normal range of motion Peripheral Pulses: radial (R): 2+, radial (L): 2+ - SKIN Integumentary: normal color, normal turgor, warm/dry. 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, grossly normal - PSYCHIATRIC Psych/Mental Status: normal mood/affect Progress - PLAN OF CARE/RESULTS Progress/Plan/Lab Results: Vital Signs - 8 hr 03/20/19 09:30 Temperature 98.2 F Pulse Rate 79 Respiratory Rate 16 Blood Pressure 134/97 O2 Sat by Pulse Oximetry 97 Orders Category Date Time Status IV Insertion ORDERED Care 06/05/18 09:50 Ordered CBC WITH ELECTRONIC DIFF [HEME] Stat Lab 06/05/18 09:50 Uncollected COMPREHENSIVE METABOLIC PANEL [CHEM] Stat Lab 06/05/18 09:50 Uncollected PROTIME WITH INR [COAG] Stat Lab 06/05/18 09:50 Uncollected PTT [COAG] Stat Lab 06/05/18 09:50 Uncollected TYPE & SCREEN [BBK] Stat Lab 06/05/18 09:50 Uncollected 0.9% Sodium Chloride Inj [Ns] 1,000 ml Med 06/05/18 10:00 Ordered IV 125 mls/hr Pantoprazole [Protonix] Med 06/05/18 09:51 Once 40 mg IV NOW ONE Sodium Chloride 0.9% Med 06/05/18 09:51 Once 10 ml INJ NOW ONE GI Bleed (possible) Stat Oth 06/05/18 09:50 Ordered Result Diagrams: 06/05/18 10:19 06/05/18 10:19 - REASSESSMENT Reassessment #1 Time Reassessed: 13:29 Status: unchanged (pt remains stable but Hb shows ~ 2gm drop since adm: will consult for admission) - CONSULTS/PCP/HOSPITALIST Notification #1 *Consult/PCP/Hospitalist*: Bennie *(Martinot) Time Discussed: 13:29 Consult Disposition: Admit Departure - Departure Date of Disposition Decision: 06/05/18 Time of Disposition Decision: 13:30 DIAGNOSIS: Upper GI hemorrhage, Contraindication to antiplatelet therapy Disposition: ADMITTED INPATIENT 09 Certified Medical Emergency: Emergent Condition: Critical Referrals and Follow-Ups: David Saldana MD [Primary Care Provider] - - Critical Care Note This patient required my direct & personal management of CC.: Yes Total Time (mins): 35 Critical Care Statement: This patient required my direct personal management to treat or rule out processes, the absence of which, could potentiallly result in sudden, clinically significant life or limb threatening deterioration. Attestation - Physician/ LEONA Attestation The physician spent face to face time with patient:: Yes Advanced Practice Provider documentation review:: Supervising physician onsite and consulted in the evaluation and care of this patient. The physician did have a face to face encounter with the patient.
[2018-06-05] MEDS: NS 1,000 ML IV SCH ×2 (10:10→19:40)
[2018-06-05 10:37] LABS: BASO# 0.06 X1000 (0.0-0.2); BASO% 0.5 % (0.0-0.8); EOS# 0.18 X1000 (0.0-0.7); EOS% 1.5 % (0.0-10.0); HEMATOCRIT 36.9 % (37.0-47.0); HEMOGLOBIN 11.2 g/dL (12.0-16.0); IMM GRAN# 0.04 X1000 (0.0-0.04); IMM GRAN% 0.3 % (0.0-0.5); LYMPH% 12.3 % (20.5-51.1); MCH 29.6 PG (27-31); MCHC 30.4 g/dL (33-37); MCV 97.6 FL (81-99); MONO# 0.84 X1000 (0.11-0.59); MONO% 6.9 % (1.7-9.3); MPV 11.6 FL (7.4-10.4); NEUT# 9.61 X1000 (1.4-6.5); NEUT% 78.5 % (42.2-75.2); PLT 249 X1000 (130-400); RBC 3.78 XMIL (4.2-5.4); RDW 13.3 % (11.5-14.5); WBC 12.23 X1000 (4.8-10.8)
[2018-06-05 10:54] LABS: INR 1.01; PROTIME 14.1 Seconds (11.0-16.0)
[2018-06-05 10:55] LABS: PTT 32.5 Seconds (22.3-41.8)
[2018-06-05 11:05] LABS: AGAP 11; ALB/GLOB RATIO 1.7; ALBUMIN 3.8 g/dL (3.5-5.0); ALKALINE PHOSPHATASE 54 U/L (32-104); BUN 29 mg/dL (8-22); CALCIUM 8.7 mg/dL (8.8-10.2); CHLORIDE 102 mmol/L (98-107); COSMO 282; CREATININE 0.5 mg/dL (0.5-0.9); ESTIMATED GFR > 60; GLUCOSE 115 mg/dL (70-104); GOT 17 U/L (10-30); GPT 18 U/L (10-36); POTASSIUM 4.4 mmol/L (3.5-5.1); SODIUM 138 mmol/L (136-145); TCO2 25 mmol/L (25-35); TOTAL BILIRUBIN 0.52 mg/dL (0.20-1.00); TOTAL PROTEIN 6.1 g/dL (6.3-8.3)
--- NOTE | 2018-06-05 14:39 | Diag Imaging Result Doc PS360 ---
EXAM: FLAT/UPRIGHT ABD/1 VIEW CHEST 06/05/2018 HISTORY: upper GIB, Recent PCI TECHNIQUE: Flat and upright abdomen with AP portable chest COMMENT: There is stool throughout the colon. There is no evidence of gastric or small bowel dilatation. There is no evidence of organomegaly or mass. There is curvature of the lumbar spine with convexity to the left. The appearance the chest has not changed significantly since 05/26/2018. IMPRESSION: Constipation. Electronically signed by Emmanuel Duarte 06/05/2018 2:37 PM
[2018-06-05] MEDS: PROTONIX 80 MG in NS 80 ML IV SCH (14:50)
--- NOTE | 2018-06-05 15:20 | EKG Report ---
Test Performed on : 06/05/2018 3:14:32 PM Test Reason : recent PCI with GIB Blood Pressure : / mmHG Vent. Rate : 077 BPM Atrial Rate : 077 BPM P-R Int : 180 ms QRS Dur : 094 ms QT Int : 400 ms P-R-T Axes : 041 -20 011 degrees QTc Int : 452 ms Atrial-paced rhythm Low voltage QRS Inferior infarct (cited on or before 18-JAN-2009) Cannot rule out Anterior infarct , age undetermined Abnormal ECG When compared with ECG of 27-MAY-2018 11:43, Electronic atrial pacemaker has replaced Sinus rhythm. Unconfirmed Result
--- NOTE | 2018-06-05 15:36 | HISTORY AND PHYSICAL ---
PRIMARY CARE PHYSICIAN: Dr. David Saldana. HISTORY OF PRESENT ILLNESS: Mrs. Szymanski is a pleasant 72-year-old female who was admitted last week to our service for SVT and was ultimately found to have significant obstructive coronary artery disease on left heart catheterization and was transferred to [facility] for PCI as well as defibrillator placement. She also has a history of gastric bypass and is quite sensitive to aspirin, however she has been on dual antiplatelet therapy since her stenting and this morning she woke up and started feeling mild discomfort in her abdomen and subsequently threw up a large amount of blood. She denies any melena or hematochezia. She denies any fever or chills. She denies any chest pain or overt abdominal pain. In the ER, she had labs and diagnostics done and was noted to be mildly hypotensive on arrival and her hemoglobin and hematocrit was 11.2 and 36.9, which is down almost one point since her recent admission. She is getting IV fluids and IV Protonix and given all of the above, she will need ICU admission. PAST MEDICAL HISTORY: 1. Known coronary artery disease, status post recent PCI, on dual antiplatelet therapy. 2. Recent wide complex tachycardia, status post defibrillator. 3. Morbid obesity, status post gastric bypass. 4. Hypertension. 5. Hypothyroidism. PAST SURGICAL HISTORY: Cholecystectomy, hysterectomy, abdominal hernia repair, cataract surgery, detached retina repair, breast reduction, gastric bypass, PCI, and defibrillator. SOCIAL HISTORY: She has a remote and distant history of nicotine use, but currently denies tobacco. She denies alcohol or drug use. is at the bedside. FAMILY HISTORY: Mother from CVA. Her father from severe coronary artery disease and myocardial infarction at age 62. ALLERGIES: No known drug allergies. HOME MEDICATIONS: Aspirin 81 mg daily, Zyrtec 10 mg daily, citalopram 20 mg daily, Premarin 0.3 mg p.o. daily, levothyroxine 100 mcg daily, lisinopril hydrochlorothiazide 20/12.5 one daily, prasugrel 10 mg daily, Requip 0.5 mg daily, simvastatin 20 mg daily, Sotalol 80 mg p.o. daily, Timolol eye drops daily, tramadol 50 mg p.o. t.i.d. as directed. REVIEW OF SYSTEMS: A 14-point review of systems is obtained and found to be negative with the exception of the HPI. PHYSICAL EXAMINATION: VITAL SIGNS: Blood pressure 86/56, heart rate 77, respiratory rate 18, O2 saturation 95% on room air. Temperature is 98.2. GENERAL: This is an obese female lying in the hospital bed in no acute distress. NEUROLOGIC: She is awake, alert, and oriented. Follows commands without focal deficits. HEENT: Head is atraumatic and normocephalic. Her pupils equal, round, and reactive to light. Oral mucosa is a bit dry. NECK: Trachea is midline. There is no JVD. CHEST: Clear to auscultation bilaterally. CV: Regular rate and rhythm. S1 and S2 noted. No appreciable murmurs. Defibrillator noted to the left chest wall with fresh incision site without edema or purulent drainage. ABDOMEN: Soft and nondistended. Bowel sounds are hypoactive. EXTREMITIES: 1+ edema bilaterally. Pulses diminished at 1+ but palpable. DIAGNOSTIC DATA: Chest and abdomen x-ray show constipation, otherwise negative. WBC 12.23, hemoglobin 11.2, hematocrit 36.9, platelet count 249. INR 1.01. Sodium 138, potassium 4.4, chloride 102. CO2 25, anion gap 11, BUN 29, creatinine 0.5, glucose is 115, calcium 8.7. AST 17, ALT 18, alkaline phosphatase 54. Protein 6.1, albumin 3.8. ASSESSMENT/PLAN: 1. Upper gastrointestinal bleed: Protonix drip has been started with intravenous fluids. Will put the patient in Intensive Care Unit for the first 24 hours. We have consulted Gastroenterology and kept her n.p.o. Will watch her hemodynamics closely. Will hold her dual antiplatelet therapy for now but will consult Cardiology for further recommendations given her stent was last week. 2. Acute blood loss anemia: Will type and cross for two units and check hemoglobin and hematocrit every six hours and transfuse if necessary. 3. Severe coronary artery disease status post recent percutaneous intervention: She denies any chest pain and chest x-ray is negative. We are awaiting an electrocardiogram. Will consult Cardiology. Hold her medications for now. 4. History of ventricular tachycardia status post pacemaker/implantable cardioverter defibrillator: Stable. Her defibrillator site looks clean, dry, and intact without signs of infection. Will monitor. 5. Deep venous thrombosis prophylaxis with sequential compression devices. Further recommendations to follow. Dictated by MATHEW Ortiz for Jeevan Doyle MD cc: MATHEW Ortiz MD
[2018-06-05 16:21] LABS: HEMATOCRIT 34.5 % (37.0-47.0); HEMOGLOBIN 10.7 g/dL (12.0-16.0)
[2018-06-05] MEDS ORDERED: SODIUM CHLORIDE 0.9% INJ SCH ×2 (17:30→22:45)
[2018-06-05] MEDS: PLAVIX PO SCH (17:48)
[2018-06-05] MEDS: CARAFATE PO SCH (17:48)
--- NOTE | 2018-06-05 19:32 | GASTROENTEROLOGY CONSULTATION ---
DATE: 06/05/2018 REASON FOR CONSULTATION: Upper gastrointestinal bleeding. HISTORY OF PRESENT ILLNESS: This is a 72-year-old white female who was recently admitted to the hospital last week for SVT. She was found to have significant coronary artery disease and was transferred to [facility] for cardiac management. She had cardiovascular stent placed. She also had pacemaker and defibrillator placement last . She was discharged home on Sunday. She states she did well until this morning when she woke up and felt a little nauseous and essentially gagged until she threw up, and noticed a moderate amount of red blood. She has denied blood in the stool or black stools. She reports having 2 bowel movements today with no noted blood. She has denied fever or chills. She had reported some mild lightheadedness. No reported dizziness or syncopal episodes. She has denied chest pain or shortness of breath. She denies abdominal pain. She does have constipation on occasion. She reported that when she woke up this morning, she was nauseated. She tried to go back to bed and could not. She woke up and decided to try and make herself vomit so she would feel better, and noticed the one episode of red bleeding. She has had some mild hypotension in the emergency room which has improved since she has been up in the intensive care unit with IV fluids. She was started on PPI. After her cardiovascular procedures, she was started on aspirin and Effient; her last dose was last evening. PAST MEDICAL HISTORY: 1. Coronary artery disease, with recent stent placement, pacemaker/defibrillator, and initiation of antiplatelet therapy. 2. Hypertension. 3. Hypothyroidism. 4. Arthritis. PAST SURGICAL HISTORY: 1. Recent cardiovascular stent placement, pacemaker/defibrillator placement. 2. Hysterectomy. 3. Breast reduction. 4. Cholecystectomy. 5. Hernia repair. 6. Cataract surgery. 7. Detached retinal surgery. 8. Gastric bypass. 9. Colon surgery. 10. Last colonoscopy by our records was 2009. 11. She required exploratory laparotomy with resection of a portion of the sigmoid colon due to perforated sigmoid colon in 2009. ALLERGIES: No known drug allergies. HOME MEDICATIONS: 1. Aspirin 81 mg. 2. Effient 10 mg every day. 3. Zyrtec daily. 4. Citalopram 1 tablet daily. 5. Premarin daily. 6. Levothyroxine daily. 7. Lisinopril/hydrochlorothiazide 20/12.5 one tablet daily. 8. Ropinirole 0.5 tablet every night. 9. Simvastatin 1 tablet daily. 10. Sotalol 80 mg daily. 11. Atenolol 1 dose ophthalmic daily. 12. Tramadol 3 times a day as needed. SOCIAL HISTORY: She denies tobacco use. Reports occasional alcohol use. She is . She does not have children. FAMILY HISTORY: Mother from CVA. Father from coronary artery disease and history of myocardial infarction at age 62. REVIEW OF SYSTEMS: HEENT: Reported some lightheadedness, but no reported syncopal episode or presyncope episode. Cardiovascular: No reported chest pain or shortness of breath. Pulmonary: No reported shortness of breath, cough, or sputum production. GI: No reported abdominal pain. Reported nausea this morning and one episode of emesis with red blood noted. Neurologic: No reported confusion. Musculoskeletal/Extremities: No lower extremity edema, swelling. PHYSICAL EXAMINATION: Vital Signs: Temperature 98.2 degrees, pulse 83, respirations 16, blood pressure 93/64. General: Patient is awake, alert, in no acute distress. HEENT: Normocephalic, atraumatic. Pupils equal, round, reactive to light. Sclerae nonicteric. Chest: With newly placed defibrillator/pacemaker with Steri-Strips in place to left chest. Respiratory: Lung sounds essentially clear bilaterally. Cardiovascular: With paced rhythm noted. Abdomen: Soft, nondistended. Positive bowel sounds. Extremities: Mild lower extremity edema noted bilaterally. DIAGNOSTIC RESULTS/LABORATORY: Hematology: WBC 12.23, hemoglobin 11.2, hematocrit 36.9 on admission. Repeat hemoglobin and hematocrit 10.7 and 34.5 at 4 cm. MCV 97.6, platelets 249,000. Coagulation: Prothrombin time 14.1, INR 1.01, PTT 32.5. Chemistry: Sodium 138, potassium 4.4, chloride 102, CO2 25, BUN 29, creatinine 0.5, glucose 115, total bilirubin 0.52, AST 17, ALT 18, alkaline phosphatase 54. Abdominal x-ray showed constipation. There was stool noted throughout the colon. No evidence of gastric or small bowel dilation. ASSESSMENT AND PLAN: 1. Upper gastrointestinal bleed with one episode of red emesis. Possible Lissa Reza tear. Continue Protonix drip. 2. Recent findings of supraventricular tachycardia. Transferred to [facility] for cardiovascular stent placement and pacemaker/defibrillator placement last week. The patient was started on aspirin and Effient. Her last dose of those medications was last evening. Cardiology consult has been placed. 3. Mild anemia. Continue to monitor hemoglobin and hematocrit. 4. We will continue to monitor hemoglobin and hematocrit, and monitor for further signs of active bleeding. Wait on cardiology recommendations on Effient and aspirin. She is at high risk for stopping those medications. For now, we will monitor. If she has further active bleeding, she may require endoscopy. Continue proton pump inhibitor. Further plans will be made according to her progress. The patient was also seen and examined by Dr. Martinez. Thank you for this consultation. Dictated by MATHEW Horton for Ted Martinez MD cc: MATHEW Mcmahon MD [facility]
--- NOTE | 2018-06-05 19:35 | CONSULTATION ---
DATE OF CONSULTATION: 06/05/2018 IMPRESSION: 1. Episode of hematemesis and upper gastrointestinal blood loss. 2. Status post recent angioplasty/stenting of obtuse marginal branch of left circumflex coronary, after which patient was placed on dual antiplatelet therapy with daily aspirin 81 mg daily and Effient 10 mg daily. 3. Known atherosclerotic coronary disease with chronic right coronary artery occlusion with well- established collaterals. 4. Recent discovery of paroxysmal ventricular tachycardia. The patient is status post implantable defibrillator, given that she has mildly depressed left ventricular systolic function. She continues on sotalol. 5. Obesity. The patient is status post previous gastric bypass procedure. 6. Hypertension. RECOMMENDATIONS: 1. Interrupt aspirin. 2. Continue single antiplatelet therapy for the immediate present with Plavix which may afford her less bleeding tendency than Effient. 3. Agree with Protonix intravenously. 4. Add Pepcid. 5. GI evaluation. 6. Ultimately would consider continuing her on oral Protonix and taking baby aspirin perhaps 3 times a week along with Plavix for intermediate term management following recent coronary stent. HISTORY OF PRESENT ILLNESS: This 72-year-old white female with a past history of hypertension, chronic right coronary artery occlusion with well-established collaterals, and obesity, was admitted recently with palpitations, near-syncope, and wide-complex tachycardia that was ultimately felt to be ventricular tachycardia. She spontaneously converted back to sinus rhythm. She was temporarily treated with amiodarone. Coronary angiography demonstrated chronic right coronary artery occlusion with well-established collaterals and significant stenosis in obtuse marginal. Left ventricular ejection fraction was around 45%. She was subsequent transferred to [facility]. She underwent angioplasty/stenting presumably of the obtuse marginal and had implantable defibrillator placed. She was started on sotalol. She was discharged on dual antiplatelet therapy with aspirin 81 mg daily and Effient 10 mg daily. This morning, she started having problems with nausea and not feeling well. There has been no chest pain. She went to the bathroom and had a episode of emesis of bright red blood and subsequently felt better. She has not had any melena. She is status post previous gastric bypass procedure. She is presently without complaint. PAST MEDICAL HISTORY: 1. Known atherosclerotic coronary disease. The patient has chronic right coronary occlusion with well-established collaterals as well as recent angioplasty/stenting presumably of severe stenosis in obtuse marginal. Left ventricular ejection fraction 45%. 2. Recent discovery of paroxysmal ventricular tachycardia. The patient is status post implantable defibrillator and continues on sotalol. 3. Morbid obesity. The patient is status post gastric bypass. 4. Hypertension. 5. Hypothyroidism. PAST SURGICAL HISTORY: Also includes cholecystectomy, hysterectomy, abdominal hernia repair, cataract surgery, detached retina repair, breast reduction surgery, gastric bypass, and implantable defibrillator. ALLERGIES: She has no known drug allergies. SOCIAL HISTORY: She has a remote history of smoking. She does not use alcohol. She is . She previously worked as a schoolteacher. FAMILY HISTORY: Positive for coronary disease. REVIEW OF SYSTEMS: Pulmonary: Negative. Gastrointestinal: Noncontributory beyond History of Present Illness. Constitutional: Negative. Remainder of review of systems negative/noncontributory beyond History of Present Illness with 14 total systems reviewed. PHYSICAL EXAMINATION: General: An obese, older white female in no distress. Vital signs: Blood pressure 113/50, heart rate 78 and regular, oxygen saturation 98% on room air. HEENT: Extraocular movements intact. Mucous membranes moist. Neck: Supple, without jugular venous distention. There are no carotid bruits. Chest: Clear to auscultation. Recent implantable defibrillator site in left subclavicular area appears to be healing well. Cardiac Exam: Reveals a regular rate and rhythm without appreciable murmur or gallop. Abdomen: Soft. Bowel sounds audible. Extremities: Without edema. Neurologic exam: Reveals her to be alert and fully oriented. Speech is fluent. She moves all 4 extremities equally well. Skin: Warm and dry. Psychiatric: Reveals her mood to be appropriate. PERTINENT DATA: Twelve-lead EKG demonstrates atrial paced rhythm and low-voltage QRS. Nonspecific T-wave abnormality demonstrated. LABORATORY DATA: Includes a white blood cell count of 12.23, hematocrit 34.5, hemoglobin 10.7, platelet count 249,000. Sodium 138, potassium 4.4, chloride 102, carbon dioxide 25, BUN 29, creatinine 0.5, glucose 115. Troponin T less than 0.01. cc: Hudson Luna MD
[2018-06-05] MEDS: REQUIP PO SCH ×2 (19:48→20:09)
[2018-06-05] MEDS: LIPITOR PO SCH ×2 (19:48→20:08)
[2018-06-05 20:32] LABS: HEMATOCRIT 34.1 % (37.0-47.0); HEMOGLOBIN 10.6 g/dL (12.0-16.0)
[2018-06-05] MEDS ORDERED: PEPCID IV SCH (21:00)
[2018-06-05] MEDS ORDERED: ZOCOR PO SCH (21:00)
--- NOTE | 2018-06-05 23:56 | HISTORY AND PHYSICAL ---
ADDENDUM The patient presented with 1 episode of hematemesis. Her exam is relatively unremarkable. Abdominal exam is benign. She had a recent stent placed less than a week ago and is currently on aspirin and Effient. Her hemoglobin and hematocrit is 11, and 36. We will continue to monitor serial hemoglobins and hematocrits. Continue IV Protonix. I think we probably do need to continue at least 1 anti-platelet medication, is going to resume Effient. Dr. Luna has evaluated the patient and has placed her on Plavix, so we will continue to follow. He has also started Pepcid, which I think is reasonable. I will just bump it up to q.12 hours. We will need to follow hemoglobin and hematocrit closely. Hemoglobin and hematocrit is stable. Will have a lower threshold to transfuse since she has recent CAD. I think we probably need to keep her closer to 10 and 30. Gastroenterology has been consulted. I think it would benefit us from endoscopy, but will defer to the current discretion of the laser technician. cc: Jeevan Doyle MD MTDD
[2018-06-06] MEDS: PROTONIX 80 MG in NS 80 ML IV SCH ×3 (01:40→22:24)
[2018-06-06] MEDS: NS 1,000 ML IV SCH ×3 (04:02→20:33)
[2018-06-06 06:04] LABS: BASO# 0.05 X1000 (0.0-0.2); BASO% 0.6 % (0.0-0.8); EOS# 0.09 X1000 (0.0-0.7); HEMATOCRIT 33.2 % (37.0-47.0); HEMOGLOBIN 10.1 g/dL (12.0-16.0); IMM GRAN# 0.02 X1000 (0.0-0.04); IMM GRAN% 0.2 % (0.0-0.5); LYMPH# 2.15 X1000 (1.2-3.4); LYMPH% 24.2 % (20.5-51.1); MCH 29.5 PG (27-31); MCHC 30.4 g/dL (33-37); MCV 97.1 FL (81-99); MONO# 0.84 X1000 (0.11-0.59); MONO% 9.5 % (1.7-9.3); MPV 11.5 FL (7.4-10.4); NEUT# 5.73 X1000 (1.4-6.5); NEUT% 64.5 % (42.2-75.2); PLT 223 X1000 (130-400); RBC 3.42 XMIL (4.2-5.4); RDW 13.6 % (11.5-14.5); WBC 8.88 X1000 (4.8-10.8)
[2018-06-06 06:25] LABS: AGAP 9; BUN 20 mg/dL (8-22); CALCIUM 8.8 mg/dL (8.8-10.2); CHLORIDE 108 mmol/L (98-107); COSMO 286; CREATININE 0.5 mg/dL (0.5-0.9); ESTIMATED GFR > 60; GLUCOSE 96 mg/dL (70-104); POTASSIUM 3.6 mmol/L (3.5-5.1); SODIUM 142 mmol/L (136-145); TCO2 25 mmol/L (25-35)
[2018-06-06 06:41] LABS: CHOLESTEROL 105 mg/dL (0-200); HDL 36 mg/dL (45-65); LDL 37 mg/dL; MAGNESIUM 1.8 mg/dL (1.5-2.7); TRIGLYCERIDES 162 mg/dL (35-135); VLDL 32 mg/dL
[2018-06-06] MEDS: CELEXA PO SCH (08:32)
[2018-06-06] MEDS: PEPCID IV SCH ×2 (08:32→20:33)
[2018-06-06] MEDS: SYNTHROID PO SCH (08:32)
[2018-06-06] MEDS: TIMOPTIC 0.25% OPH SOLUTION OPH SCH (08:32)
[2018-06-06] MEDS: ZYRTEC PO SCH (08:32)
[2018-06-06] MEDS: CARAFATE PO SCH ×3 (08:32→16:51)
[2018-06-06] MEDS: BETAPACE PO SCH (08:32)
[2018-06-06] MEDS: PLAVIX PO SCH (08:32)
--- NOTE | 2018-06-06 12:02 | PROGRESS NOTE ---
DATE: 06/06/2018 SUBJECTIVE: Patient is awake and seated on the side of the bed. Not in any obvious distress. OBJECTIVE: Vital signs: Temperature is 97.7, pulse 79, respiratory rate 16, blood pressure 152/75, oxygen saturation is 98%. HEENT: Atraumatic, normocephalic. Cardiovascular: S1, S2 irregular. Respiratory system: Evidence of good air entry bilaterally. Abdomen: Soft, nontender. No masses felt. Extremities: Trace edema in the lower extremities. Central nervous system: No obvious focal deficit noted. LABORATORY DATA: WBC is 8.88, platelet count of 223. Sodium is 142, potassium 3.6, chloride is 108, bicarbonate is 25, BUN is 20, creatinine 0.5. ASSESSMENT AND PLAN: 1. Gastrointestinal bleed. This is most likely secondary to antiplatelet agent. In the meantime, we will maintain patient on H2 emanuel. Follow up on her hemoglobin and hematocrit. Transfuse PRBCs as needed. Maintain patient on intravenous fluids. Gastroenterology has already been consulted. 2. Coronary artery disease status post recent percutaneous coronary intervention (PCI). Cardiology has already been consulted. The patient is currently on Plavix (in light of her recent PCI). Continue statin as well. 3. History of ventricular tachycardia status post automatic implantable cardioverter device (AICD) implantation. Aware. Cardiology consulted. 4. Hypothyroidism. Continue levothyroxine. 5. Deep vein thrombosis (DVT) prophylaxis. SCD. 6. Gastrointestinal (GI) prophylaxis. Patient is currently on famotidine. cc: Kale Littlejohn MD [facility]
[2018-06-06] MEDS ORDERED: ASPIRIN EC PO ONE (14:15)
--- NOTE | 2018-06-06 14:37 | GASTROENTEROLOGY PROGRESS NOTE ---
DATE: 06/06/2018 SUBJECTIVE: Ms. Szymanski was sitting up in the chair. She was resting comfortably. She did not have any GI complaints. Since last melenic stool yesterday, she has not had any bowel movements. She did not complain of any nausea or abdominal pain. She is hungry and wants to eat. In fact, she wanted to go home today. OBJECTIVE: Vital Signs: Temperature 98.2 degrees, pulse is 77 per minute, breathing 19, blood pressure is 114/62. Eyes: Conjunctivae normal. No icterus noted. Abdomen: Full, soft, nontender. Bowel sounds audible. LABORATORY DATA: Hemoglobin 10.1, hematocrit 33.2. BUN has come down to 20, with creatinine 0.5. IMPRESSION: Upper gastrointestinal bleed. She was started on dual antiplatelet therapy after stent placement. At this point, she is only on Plavix. However, since admission, she has not shown any signs of active bleeding. Currently on Protonix drip and Carafate along with Pepcid. At this point, I would start her on full liquid diet, and continue to observe her, continue to check hemoglobin and hematocrit and transfuse if necessary. I would reserve endoscopy for therapeutic measures only, if she shows any signs of active bleeding. I have explained my findings and plan to the patient. She understands, and will follow. cc: Ted Martinez MD
--- NOTE | 2018-06-06 14:42 | PROGRESS NOTE ---
DATE: 06/06/2018 SUBJECTIVE: The patient continues without chest discomfort or dyspnea. She had some melena last night but none today. She reports no abdominal symptoms. She does relate some insomnia. OBJECTIVE: Blood pressure 113/63, heart rate 72, oxygen saturation 98% on room air. Chest is clear to auscultation bilaterally. Cardiac examination reveals a regular rate and rhythm without appreciable murmur or gallop. There is no evidence of peripheral edema. Laboratory data includes white blood cell count 8.88, hematocrit 33.2, hemoglobin 10.1. Sodium 142, potassium 3.6, chloride 108, carbon dioxide 25, BUN 20, creatinine 0.5, magnesium 1.8. IMPRESSION: 1. Recent upper gastrointestinal blood loss, on dual antiplatelet therapy with aspirin 81 mg by mouth daily and Effient 10 mg by mouth daily, following recent coronary stent. Hematocrit seems to have stabilized. 2. Status post recent angioplasty/stenting of obtuse marginal branch and left circumflex coronary artery after which patient was placed on dual antiplatelet therapy and daily aspirin 81 mg daily with Effient 10 mg by mouth daily. 3. Known atherosclerotic coronary disease with chronic right coronary artery occlusion with well- established collaterals. 4. Recent discovery of paroxysmal ventricular tachycardia. Patient is status post implantable defibrillator given that she has mildly depressed left ventricular systolic function with left ventricular ejection fraction of 45%. She also continues on sotalol 80 mg twice daily. 5. Obesity. 6. Hypertension. RECOMMENDATIONS: 1. Effient stopped and patient switched to Plavix which hopefully might afford her less tendency for GI blood loss. 2. We will switch to enteric-coated aspirin 81 mg p.o. 3 times a week for now. 3. Continue Protonix intravenously and ultimately transition to oral. cc: Hudson Luna MD
[2018-06-06] MEDS: LIPITOR PO SCH (20:33)
[2018-06-06] MEDS: ULTRAM PO PRN (20:33)
[2018-06-06] MEDS: REQUIP PO SCH (20:33)
[2018-06-07] MEDS: NS 1,000 ML IV SCH (05:36)
[2018-06-07 06:06] LABS: BASO# 0.04 X1000 (0.0-0.2); BASO% 0.6 % (0.0-0.8); EOS# 0.16 X1000 (0.0-0.7); EOS% 2.5 % (0.0-10.0); HEMATOCRIT 29.4 % (37.0-47.0); LYMPH# 1.66 X1000 (1.2-3.4); MCH 29.9 PG (27-31); MCHC 30.6 g/dL (33-37); MCV 97.7 FL (81-99); MONO# 0.51 X1000 (0.11-0.59); MPV 11.2 FL (7.4-10.4); NEUT# 4.01 X1000 (1.4-6.5); NEUT% 62.9 % (42.2-75.2); PLT 192 X1000 (130-400); RBC 3.01 XMIL (4.2-5.4); RDW 13.6 % (11.5-14.5); WBC 6.38 X1000 (4.8-10.8)
[2018-06-07 06:33] LABS: AGAP 8; BUN 11 mg/dL (8-22); CHLORIDE 112 mmol/L (98-107); COSMO 284; CREATININE 0.6 mg/dL (0.5-0.9); ESTIMATED GFR > 60; GLUCOSE 93 mg/dL (70-104); POTASSIUM 3.6 mmol/L (3.5-5.1); SODIUM 143 mmol/L (136-145); TCO2 23 mmol/L (25-35)
[2018-06-07] MEDS: ULTRAM PO PRN (08:11)
[2018-06-07] MEDS: CARAFATE PO SCH ×2 (08:11→12:52)
[2018-06-07] MEDS: PEPCID IV SCH (08:11)
[2018-06-07] MEDS: ZYRTEC PO SCH (08:11)
[2018-06-07] MEDS: PLAVIX PO SCH (08:11)
[2018-06-07] MEDS: SYNTHROID PO SCH (08:11)
[2018-06-07] MEDS: CELEXA PO SCH (08:11)
[2018-06-07] MEDS: PROTONIX 80 MG in NS 80 ML IV SCH (08:35)
[2018-06-07] MEDS: BETAPACE PO SCH (08:36)
[2018-06-07] MEDS: TIMOPTIC 0.25% OPH SOLUTION OPH SCH (08:36)
--- NOTE | 2018-06-07 12:38 | Diag Imaging Result Doc PS360 ---
CHEST-PORTABLE - 06/07/2018 INDICATION: dyspnea COMPARISON: 06/05/2018, 05/26/2018 FINDINGS: Stable left-sided dual-chamber pacemaker. Heart size and pulmonary vascularity is normal. No infiltrates or edema. No pneumothorax or pleural effusion. IMPRESSION: Negative exam. Electronically signed by Jaquan Mcclain 06/07/2018 12:35 PM
[2018-06-07 13:08] VITALS: BP 144/56
--- NOTE | 2018-06-07 15:17 | GASTROENTEROLOGY PROGRESS NOTE ---
DATE: 06/07/2018 SUBJECTIVE: Patient is sitting up in a chair in no acute distress. She has had no evidence of active bleeding today. Hemoglobin and hematocrit today 9.0, 29.4. She states there are plans for her to be transferred to the medical floor today. OBJECTIVE: Vital Signs: Temperature 98.2 degrees, pulse 78, respirations 18, blood pressure 127/83. General: Patient is awake, alert, no acute distress. She is sitting up in a chair. LABORATORY: Hematology. WBC 6.38, hemoglobin 9.0, hematocrit 29.4, MCV 97.7, platelets 192,000. Chemistry. Sodium 143, potassium 3.6, chloride 112, CO2 of 23, BUN 11, creatinine 0.6, glucose 93, calcium 8.0. ASSESSMENT AND PLAN: Recent upper gastrointestinal bleeding. She has been changed from Effient to Plavix by Cardiology. The patient had recent angioplasty and stent with pacemaker defibrillator placement. Continue to follow by cardiology. Patient has had no active bleeding today. Will continue to monitor hemoglobin and hematocrit. Will change her PPI from IV to p.o. this afternoon. Continue to monitor. Further plans to be made according to her progress. I have discussed this case with Dr. Martinez. Dictated by MATHEW Horton for Ted Martinez MD cc: MATHEW Mcmahon MD
[2018-06-07] MEDS ORDERED: PROTONIX PO SCH (21:00)
--- NOTE | 2018-06-08 07:01 | DISCHARGE SUMMARY ---
ADMISSION DATE: 06/05/2018 DISCHARGE DATE: 06/07/2018 FINAL DISCHARGE DIAGNOSES: 1. Suspected upper gastrointestinal bleed. 2. Coronary artery disease status post recent percutaneous coronary intervention. 3. Hypertension. 4. Hypothyroidism. 5. Morbid obesity. CONSULTATIONS: 1. GI consultation with Dr. Martinez. 2. Cardiology consultation with Dr. Luna. HOSPITAL COURSE: Ms. Szymanski is a 72-year-old female with a history of coronary artery disease status post PCI 1 week ago, who presented to the ER with abdominal pain and hematemesis. The patient was admitted to the hospitalist service and started on a Protonix drip. GI as well as Cardiology were consulted. At the time prior to admission, the patient was on aspirin plus Effient. After being assessed by both GI and Cardiology, it was decided to switch the patient to Plavix and to add aspirin to be taken 3 times a week versus daily. The patient was monitored closely in ICU setting and her hemoglobin and hematocrit remained stable. On the day of discharge, the patient was noted to have a hemoglobin of 9 with a hematocrit of 29. The patient was also able to tolerate a GI soft diet without any difficulty. The patient was ultimately cleared for discharge home on 06/07/2018. DISCHARGE MEDICATIONS: 1. Carafate 1 g p.o. 3 times a day. 2. Plavix 75 mg p.o. daily. 3. Protonix 40 mg p.o. twice a day. 4. Lipitor 40 mg p.o. at bedtime. 5. Aspirin 81 mg on Sunday, Sunday, and Sunday. 6. Zyrtec 10 mg p.o. daily. 7. Celexa 20 mg p.o. daily. 8. Premarin use as directed. 9. Requip 0.5 mg p.o. at bedtime. 10. Lisinopril hydrochlorothiazide 1 tab oral daily. 11. Synthroid 100 mcg p.o. daily. 12. Sotalol 80 mg p.o. daily. DISCHARGE DIET: Low-sodium low-cholesterol diet. ACTIVITY: As tolerated. FOLLOWUP INSTRUCTIONS: The patient will need to follow up with Dr. Martinez as scheduled by his clinic. The patient will also follow up with Dr. Luna as scheduled by his clinic. cc: MD David Gutiérrez MD
[2018-06-10] MEDS ORDERED: ASPIRIN EC PO SCH (08:00)
== END 2018-06-07 15:25 | disposition home or self-care (01) ==
LOC: DIRADM 09:27 → ED 09:27 → SUATTDRO 14:30 → ICU 14:30
PROVIDERS: ADMIT Internal Medicine; ATTEND Internal Medicine
CPT/HCPCS: 71010; 71045; 74022; 80048; 80053; 80061; 82550; 83735; 84484; 85014; 85018; 85025; 85610; 85730; 86850; 86900; 86901; 93005; 93010; 96361; 96365; 96375; 97161; 99285; A9270; C9113; J7030; S0028; S0164